=== PATIENT | male | born 1965 | race Caucasian/White ===

== ENCOUNTER → 2019-03-08 | Outpatient (CLI) | payer OTHER ==
[~2019-03-08] MED LIST: PROHANCE 279.3MG/ML 15ML VIAL (A9576) As Ordered ONE; PROHANCE 279.3MG/ML 5ML VIAL (A9576) As Ordered ONE
--- NOTE | 2019-03-08 15:01 | REP ---
MULTIPARAMETRIC PROSTATE MRI WITH AND WITHOUT CONTRAST: HISTORY: Elevated PSA. TECHNIQUE: Using a phased array surface coil, small field of view imaging was acquired using T2-weighted scans in the axial, coronal, and sagittal imaging planes. Small field of view diffusion-weighted sequences are acquired. Small field of view axial T1-weighted scans are acquired dynamically after the intravenous administration of 18 mL of ProHance. Using a large field of view, the entire pelvis to the level of the aortic bifurcation was imaged using pre-contrast axial T1 and post-contrast axial T1 fat-saturation images. Prostate gland measures 4.9 x 3.6 x 3.8 cm for a total volume of 35.9 mL. The visualized osseous structures of the pelvis demonstrate normal marrow signal, but no bone lesion identified. No adenopathy is seen in the pelvis. There is also no free fluid in the visualized pelvis. Seminal vesicles are symmetrical. Heterogeneous signal is seen throughout the prostate with a somewhat nodular pattern. Two dominant regions of interest are identified in the prostate for directed MR ultrasound fusion guided biopsy. First in the left transitional zone and posterior peripheral zone extending from the base to the apex there is a geographic area of heterogeneous low signal on T1 and diffusion weighted scans demonstrating predominantly type 3 enhancement throughout. The area measures 3.2 x 2.3 x 3.5 cm for a total volume of 10.6 mL. This diffuse area of type 3 enhancement is nonspecific. Overall level of suspicion is 3 out of 5 with underling clinically significant cancer equivocal. Next in the right transitional zone and posterior peripheral zone extending from the base to the apex there is a similar appearing area of heterogeneous low signal on T2-weighted images which demonstrates diffuse type 3 enhancement. The area measures 2.8 x 1.8 x 3.1 cm for a total volume of 10.2 mL. Again this area is of type 3 enhancement is nonspecific. Overall level of suspicion for underlying cancer is 3 out of 5 with clinically significant cancer equivocal. IMPRESSION: Nonspecific findings with diffuse type 3 enhancement in both lobes of the prostate as discussed in detail above. Two dominant regions of interest are identified for MR ultrasound fusion guided biopsy. Electronically Signed by Matty Mark MD 03/12/2019 04:55 P
== END ==
LOC: M RAD 12:06
PROVIDERS: ATTEND Urology
DX: R97.20 Elevated prostate specific antigen [PSA] (principal)
CPT/HCPCS: 72197; A9576

== ENCOUNTER → 2019-03-20 | Outpatient (REF) | payer OTHER | LOC: M SMT 12:44 | PROVIDERS: ATTEND Nurse Practitioner Family | DX: R97.20 Elevated prostate specific antigen [PSA] (principal); R39.89 Other symptoms and signs involving the genitourinary system | CPT/HCPCS: 87086; G0463 ==

== ENCOUNTER → 2019-04-17 | Outpatient (CLI) | payer OTHER ==
--- NOTE | 2019-04-17 14:02 | REP ---
TRANSRECTAL ULTRASOUND GUIDANCE FOR PROSTATE BIOPSY: Transrectal ultrasound guidance was provided for Dr. Macdonald who performed MR ultrasound fusion guided biopsy of the prostate. Twenty-four biopsy samples were obtained. Electronically Signed by Matty Mark MD 04/17/2019 06:44 P
== END ==
LOC: M SMT PRO 08:10
PROVIDERS: ATTEND Urology
DX: R97.20 Elevated prostate specific antigen [PSA] (principal)
CPT/HCPCS: 55700; 76942; G0416

== ENCOUNTER → 2022-01-01 | Outpatient (CLI) | payer OTHER ==
[~2022-01-01] MED LIST changes: +ATOR40TA75 PO; +CLAR10CA3 PO; +D3 S1CAP3 PO; +EQL50TAB2 PO; +FLON1SPR; +META28PO PO; -PROHANCE 279.3MG/ML 15ML VIAL (A9576) As Ordered ONE; -PROHANCE 279.3MG/ML 5ML VIAL (A9576) As Ordered ONE; +RANI15TA PO; +RIBO400T PO; +SUMA100T2 PO; +VITMTA PO
== END ==
LOC: M LABSMTC 09:22
PROVIDERS: ATTEND Anesthesiology
DX: Z01.812 Encounter for preprocedural laboratory examination (principal); Z20.822 Contact with and (suspected) exposure to COVID-19

== ENCOUNTER 2022-01-06 08:54 | Day surgery (SDC) | payer OTHER ==
[~2022-01-06] VITALS: Ht 175.3 cm; Wt 94.3 kg
[~2022-01-06 08:54] MED LIST changes: +NS 1,000 ML IV ONE
[2022-01-06] MEDS ORDERED: propofoL 200 MG/20 ML VIAL As Ordered ONE (09:15)
[2022-01-06] MEDS ORDERED: LIDOCAINE 2% 100MG/5ML SDV (FOR ANES.) As Ordered ONE (09:15)
[2022-01-06 10:30] VITALS: BP 119/67
== END 2022-01-06 10:45 | disposition home or self-care (01) ==
LOC: M OPP 08:54
PROVIDERS: ATTEND Internal Medicine Gastroenterology
DX: Z12.11 Encounter for screening for malignant neoplasm of colon (principal); K57.30 Diverticulosis of large intestine without perforation or abscess without bleeding; K64.0 First degree hemorrhoids; K22.89 Other specified disease of esophagus; K44.9 Diaphragmatic hernia without obstruction or gangrene; R12 Heartburn; G47.30 Sleep apnea, unspecified; Z79.899 Other long term (current) drug therapy

== ENCOUNTER → 2022-03-16 | Outpatient (CLI) | payer OTHER ==
[~2022-03-16] MED LIST changes: -NS 1,000 ML IV ONE
== END ==
LOC: M LAB 08:34
PROVIDERS: ATTEND Urology
DX: R97.20 Elevated prostate specific antigen [PSA] (principal)